=== PATIENT | male | born 1965 | race Two or more races ===

== ENCOUNTER 2023-08-17 17:31 | Inpatient (IN) | payer MEDICAID, OTHER ==
[~2023-08-17] VITALS: Ht 185.4 cm; Wt 83.2 kg
[2023-08-17] MEDS: SODIUM CHLORIDE 0.9% 1,000 ML IV ONE ×2 (18:21→23:44)
[2023-08-17 19:19] LABS: Basophils # (auto) 0.1 10 ^3/uL (0-0.2); Basophils % (auto) 0.6 % (0.0-2.0); Eosinophils # (auto) 0.1 10 ^3/uL (0-0.8); Eosinophils % (auto) 1.2 % (0.0-7.0); Hematocrit 37.6 % (41.0-53.0); Hemoglobin 12.6 g/dL (13.5-17.5); Lymphocytes % (auto) 8.9 % (10.0-50.0); Mean Corpuscular Hemoglobin 27.9 pg (28.0-32.0); Mean Corpuscular Hgb Conc. 33.4 g/dL (32.0-36.0); Mean Corpuscular Volume 83.6 fL (80.0-100.0); Monocytes % (auto) 8.3 % (0.0-12.0); Neutrophils # (auto) 9.4 10 ^3/uL (1.6-8.6); Nucleated Red Blood Cells % 0.1 %; Red Cell Distribution Width 15.4 % (11.8-14.3); White Blood Cell 11.6 10^3/uL (4.4-10.8)
[2023-08-17 19:33] LABS: Alanine Aminotransferase 45 U/L (7-40); Alkaline Phosphatase 58 U/L (46-116); Anion Gap 7 (5-15); Aspartate Aminotransferase 25 U/L (13-40); BUN/Creatinine Ratio 23.7 (10.0-20.0); Blood Urea Nitrogen 18 mg/dL (9-23); Calcium 8.7 mg/dL (8.7-10.4); Carbon Dioxide 23 mmol/L (20-30); Chloride 100 mmol/L (98-107); Glucose 95 mg/dL (74-106); Potassium 3.6 mmol/L (3.5-5.1); Sodium 130 mmol/L (136-145)
[2023-08-17 19:34] LABS: Albumin 3.8 g/dL (3.2-4.8); Total Protein 6.9 g/dL (5.7-8.2)
[2023-08-17] MEDS: ACETAMINOPHEN 325 MG TAB PO ONE (23:36)
[2023-08-17] MEDS: cefTRIAXone 1GM/50ML D5W 50 ML IV ONE (23:38)
[2023-08-18] MEDS ORDERED: NITROGLYCERIN 0.4 MG SL TAB SL PRN (00:15)
[2023-08-18] MEDS ORDERED: ONDANSETRON HCL 4 MG/2 ML VIAL IV PRN (00:15)
[2023-08-18] MEDS ORDERED: MORPHINE SULFATE INJ 2 MG/ml SYRG IV PRN (00:15)
[2023-08-18] MEDS ORDERED: TEMAZEPAM 15 MG CAP PO PRN (00:15)
[2023-08-18] MEDS: SODIUM CHLORIDE 0.9% 1,000 ML IV ONE (01:04)
[2023-08-18 02:50] LABS: Urine Bacteria None Seen /hpf (None Seen)
[2023-08-18 03:08] LABS: Urine Blood 1+ /uL (Negative); Urine Clarity Clear (Clear); Urine Color Light-Yellow (Yellow); Urine Protein, UAD Negative (Negative); Urine Specific Gravity 1.016 (1.001-1.035); Urine Urobilinogen Normal (Negative); Urine WBC 1 /hpf (0 - 3); Urine pH 5.5 (5.0-9.0)
[2023-08-18 06:39] VITALS: PULSE 114
[2023-08-18 07:20] VITALS: PULSE 116; RESP 17; O2SAT 96
[2023-08-18] MEDS: ACETAMINOPHEN 325 MG TAB PO PRN (07:57)
[2023-08-18 08:20] LABS: COVID19 ANTIGEN SOFIA FIA NEGATIVE (NEGATIVE)
[2023-08-18 10:21] LABS: Basophils # (auto) 0 10 ^3/uL (0-0.2); Basophils % (auto) 0.4 % (0.0-2.0); Eosinophils # (auto) 0 10 ^3/uL (0-0.8); Eosinophils % (auto) 0.1 % (0.0-7.0); Hematocrit 38.7 % (41.0-53.0); Hemoglobin 13.1 g/dL (13.5-17.5); Lymphocytes # (auto) 1.2 10 ^3/uL (0.4-5.4); Lymphocytes % (auto) 11.4 % (10.0-50.0); Mean Corpuscular Hemoglobin 27.8 pg (28.0-32.0); Mean Corpuscular Hgb Conc. 33.8 g/dL (32.0-36.0); Mean Corpuscular Volume 82.4 fL (80.0-100.0); Monocytes # (auto) 0.6 10 ^3/uL (0-1.3); Monocytes % (auto) 5.8 % (0.0-12.0); Neutrophils # (auto) 8.8 10 ^3/uL (1.6-8.6); Neutrophils % (auto) 82.3 % (37.0-80.0); Red Cell Distribution Width 14.9 % (11.8-14.3); White Blood Cell 10.6 10^3/uL (4.4-10.8)
[2023-08-18 10:36] LABS: INR 1.19 (0.9-1.15); Prothrombin Time 12.5 sec (9.3-11.8)
[2023-08-18 10:40] LABS: Alanine Aminotransferase 38 U/L (7-40); Albumin 3.7 g/dL (3.2-4.8); Alkaline Phosphatase 55 U/L (46-116); Anion Gap 6 (5-15); Aspartate Aminotransferase 20 U/L (13-40); BUN/Creatinine Ratio 24.2 (10.0-20.0); Blood Urea Nitrogen 16 mg/dL (9-23); Calcium 8.6 mg/dL (8.5-10.1); Carbon Dioxide 25 mmol/L (20-30); Chloride 100 mmol/L (98-107); Creatine Kinase IFCC 112 U/L (46-171); Glucose 100 mg/dL (74-106); LDL Cholesterol 59 mg/dL (< 100); Magnesium 1.6 mg/dL (1.6-2.6); Potassium 3.2 mmol/L (3.5-5.1); Sodium 131 mmol/L (136-145); Triglycerides 72 mg/dL (< 150)
[2023-08-18 10:41] LABS: Bilirubin, Total 1.1 mg/dL (0.2-1.0); Cholesterol 108 mg/dL (< 200); HDL Cholesterol 34 mg/dL (40-59); Total Protein 6.7 g/dL (5.7-8.2)
[2023-08-18 10:49] LABS: CRP High Sensitivity 7.85 mg/dL (<1.0)
[2023-08-18] MEDS: POTASSIUM CHL 20 Meq TABLET PO ONE (12:12)
[2023-08-18] MEDS: MAGNESIUM SULFATE 1GM/100ML 100 ML IV SCH (12:13)
[2023-08-18] MEDS: SODIUM CHLORIDE 0.9% 1,000 ML IV SCH (12:13)
[2023-08-18 12:57] LABS: Amphetamine Screen, Urine Pos (NEGATIVE); Barbiturate Scree,Urine Neg (NEGATIVE); Benzodiazephine Screen, Urine Neg (NEGATIVE); Cocaine Screen, Urine Neg (NEGATIVE)
[2023-08-18 12:58] LABS: Cannabinoid Screen, Urine Neg (NEGATIVE); Opiate Scree,Urine Neg (NEGATIVE); Phencyclidine Screen, Urine Neg (NEGATIVE)
[2023-08-18 13:16] LABS: Rapid Influenza A Negative (Negative); Rapid Influenza B Negative (Negative)
[2023-08-18] MEDS: cefTRIAXone 1GM/50ML D5W 50 ML IV ONE (16:48)
[2023-08-18 22:46] VITALS: BP 146/99; PULSE 100; RESP 17; TEMP 97.7; O2SAT 98
[2023-08-18 22:54] VITALS: PULSE 100; RESP 18; O2SAT 98
[2023-08-19] VITALS (8 sets, daily range): BP systolic 118–130; BP diastolic 75–88; PULSE 62–120; RESP 16–20; TEMP 97.8–100.3; O2SAT 94–100
[2023-08-19 06:27] LABS: Basophils # (auto) 0 10 ^3/uL (0-0.2); Basophils % (auto) 0.5 % (0.0-2.0); Eosinophils # (auto) 0 10 ^3/uL (0-0.8); Hematocrit 38.6 % (41.0-53.0); Lymphocytes % (auto) 13.6 % (10.0-50.0); Mean Corpuscular Hemoglobin 27.8 pg (28.0-32.0); Mean Corpuscular Hgb Conc. 33.6 g/dL (32.0-36.0); Mean Corpuscular Volume 82.9 fL (80.0-100.0); Monocytes # (auto) 0.9 10 ^3/uL (0-1.3); Monocytes % (auto) 12.5 % (0.0-12.0); Neutrophils # (auto) 5.5 10 ^3/uL (1.6-8.6); Neutrophils % (auto) 73.4 % (37.0-80.0); Red Blood Cells 4.66 10^6/uL (4.5-5.90); Red Cell Distribution Width 14.8 % (11.8-14.3); White Blood Cell 7.4 10^3/uL (4.4-10.8)
[2023-08-19 06:47] LABS: Alanine Aminotransferase 36 U/L (7-40); Albumin 3.4 g/dL (3.2-4.8); Alkaline Phosphatase 49 U/L (46-116); Anion Gap 6 (5-15); Aspartate Aminotransferase 21 U/L (13-40); BUN/Creatinine Ratio 22.6 (10.0-20.0); Blood Urea Nitrogen 14 mg/dL (9-23); Calcium 8.3 mg/dL (8.5-10.1); Carbon Dioxide 22 mmol/L (20-30); Chloride 99 mmol/L (98-107); Glucose 110 mg/dL (74-106); Magnesium 1.8 mg/dL (1.6-2.6); Potassium 3.1 mmol/L (3.5-5.1); Sodium 127 mmol/L (136-145)
[2023-08-19 06:48] LABS: Bilirubin, Total 0.9 mg/dL (0.2-1.0); Total Protein 6.3 g/dL (5.7-8.2)
[2023-08-19 07:06] LABS: RPR Non Reactive (Non Reactive)
[2023-08-19 08:02] LABS: Erythrocyte Sedimentation Rate 8 mm/hr (0-20)
[2023-08-19] MEDS: cefTRIAXone 1GM/50ML D5W 50 ML IV SCH (09:16)
[2023-08-19] MEDS: MAGNESIUM SULFATE 1GM/100ML 100 ML IV ONE ×2 (12:05→15:00)
[2023-08-19 14:35] LABS: Chloride 100 mmol/L (98-107); Potassium 3.1 mmol/L (3.5-5.1)
[2023-08-19 14:36] LABS: Anion Gap 5 (5-15); Calcium 8.4 mg/dL (8.5-10.1); Carbon Dioxide 27 mmol/L (20-30)
[2023-08-19 14:41] LABS: BUN/Creatinine Ratio 19.7 (10.0-20.0); Blood Urea Nitrogen 13 mg/dL (9-23); Glucose 114 mg/dL (74-106)
[2023-08-19 14:54] LABS: Sodium 132 mmol/L (136-145)
[2023-08-19] MEDS ORDERED: POTASSIUM CHLORIDE 60 MEQ, LIDOCAINE 1% (LOCAL ANESTH.) 6 ML in SODIUM CHL 0.9% 500 ML IV ONE (15:00)
[2023-08-19] MEDS: POTASSIUM CHLORIDE 60 MEQ, LIDOCAINE 1% (LOCAL ANESTH.) 6 ML in SODIUM CHL 0.9% 500 ML IV ONE (15:00)
[2023-08-19 17:46] LABS: Folate (Folic Acid) 14.41 ng/mL (>5.38)
[2023-08-19] MEDS: POTASSIUM EFFERVESENT TAB 25 MEQ PO ONE (18:25)
[2023-08-19] MEDS: ERGOCALCIFEROL 50,000 UNIT(1.25MG) CAP PO SCH (20:01)
[2023-08-20] VITALS (7 sets, daily range): BP systolic 119–148; BP diastolic 76–87; PULSE 79–98; RESP 16–18; TEMP 98.1–98.9; O2SAT 96–99
[2023-08-20 05:30] LABS: Creatinine, Urine 30.9 mg/dL (30.0-125.0)
[2023-08-20 07:47] LABS: Basophils # (auto) 0.1 10 ^3/uL (0-0.2); Basophils % (auto) 0.8 % (0.0-2.0); Eosinophils # (auto) 0.2 10 ^3/uL (0-0.8); Hemoglobin 13.1 g/dL (13.5-17.5); Lymphocytes # (auto) 1.3 10 ^3/uL (0.4-5.4); Lymphocytes % (auto) 19.3 % (10.0-50.0); Mean Corpuscular Hemoglobin 27.5 pg (28.0-32.0); Mean Corpuscular Hgb Conc. 32.9 g/dL (32.0-36.0); Mean Corpuscular Volume 83.8 fL (80.0-100.0); Monocytes # (auto) 1.1 10 ^3/uL (0-1.3); Monocytes % (auto) 16.2 % (0.0-12.0); Neutrophils # (auto) 4.2 10 ^3/uL (1.6-8.6); Neutrophils % (auto) 60.7 % (37.0-80.0); Nucleated Red Blood Cells % 0.1 %; Red Blood Cells 4.77 10^6/uL (4.5-5.90); Red Cell Distribution Width 15.2 % (11.8-14.3)
[2023-08-20 07:54] LABS: Alanine Aminotransferase 33 U/L (7-40); Albumin 3.2 g/dL (3.2-4.8); Alkaline Phosphatase 46 U/L (46-116); Anion Gap 4 (5-15); Aspartate Aminotransferase 23 U/L (13-40); BUN/Creatinine Ratio 18.2 (10.0-20.0); Blood Urea Nitrogen 10 mg/dL (9-23); Calcium 8.5 mg/dL (8.5-10.1); Carbon Dioxide 26 mmol/L (20-30); Chloride 105 mmol/L (98-107); Creatine Kinase IFCC 55 U/L (46-171); Glucose 99 mg/dL (74-106); Magnesium 2.2 mg/dL (1.6-2.6); Potassium 3.6 mmol/L (3.5-5.1); Sodium 135 mmol/L (136-145)
[2023-08-20 07:55] LABS: Bilirubin, Total 0.4 mg/dL (0.2-1.0); Total Protein 6.1 g/dL (5.7-8.2)
[2023-08-20 08:04] LABS: CRP High Sensitivity 6.26 mg/dL (<1.0)
[2023-08-20 08:41] LABS: Hepatitis B Surface Antibody Negative (Negative)
[2023-08-20 09:02] LABS: Hepatitis B Surface Antigen Positive (Negative)
[2023-08-20] MEDS ORDERED: VANCOMYCIN PER PHARMACY 0 MG IV SCH (16:00)
[2023-08-20] MEDS: VANCOMYCIN 1GM/200ML 200 ML IV ONE (17:24)
[2023-08-20] MEDS: MUPIROCIN 2% OINT 15gm or 22gm FOR MRSA NARES EACHNOSTRI SCH (21:49)
[2023-08-21 01:00] VITALS: BP 110/80; PULSE 90; RESP 18; TEMP 97.2; O2SAT 98
[2023-08-21] MEDS: VANCOMYCIN 1GM/200ML 200 ML IV SCH (02:08)
[2023-08-21 05:00] VITALS: BP 126/85; PULSE 83; RESP 16; TEMP 97.8; O2SAT 98
[2023-08-21 05:09] LABS: Chloride 107 mmol/L (98-107); Potassium 3.6 mmol/L (3.5-5.1); Sodium 136 mmol/L (136-145)
[2023-08-21 05:10] LABS: Anion Gap 2 (5-15); Calcium 8.5 mg/dL (8.5-10.1); Carbon Dioxide 27 mmol/L (20-30)
[2023-08-21 05:12] LABS: Basophils # (auto) 0.1 10 ^3/uL (0-0.2); Basophils % (auto) 0.9 % (0.0-2.0); Eosinophils # (auto) 0.4 10 ^3/uL (0-0.8); Eosinophils % (auto) 6.9 % (0.0-7.0); Hematocrit 38.9 % (41.0-53.0); Hemoglobin 13.1 g/dL (13.5-17.5); Lymphocytes # (auto) 1.6 10 ^3/uL (0.4-5.4); Lymphocytes % (auto) 28.7 % (10.0-50.0); Mean Corpuscular Hgb Conc. 33.8 g/dL (32.0-36.0); Monocytes # (auto) 0.9 10 ^3/uL (0-1.3); Monocytes % (auto) 16.3 % (0.0-12.0); Neutrophils # (auto) 2.7 10 ^3/uL (1.6-8.6); Neutrophils % (auto) 47.2 % (37.0-80.0); Nucleated Red Blood Cells % 0.1 %; Red Blood Cells 4.69 10^6/uL (4.5-5.90); Red Cell Distribution Width 15.6 % (11.8-14.3); White Blood Cell 5.6 10^3/uL (4.4-10.8)
[2023-08-21 05:15] LABS: BUN/Creatinine Ratio 19.4 (10.0-20.0); Blood Urea Nitrogen 12 mg/dL (9-23); Glucose 94 mg/dL (74-106)
[2023-08-21 05:16] LABS: Magnesium 1.9 mg/dL (1.6-2.6)
[2023-08-21 08:50] VITALS: BP 127/72; PULSE 85; RESP 17; TEMP 98; O2SAT 95
[2023-08-21] MEDS: CIPROFLOXACIN HYDROCHLORIDE 250 MG TAB PO SCH (09:01)
[2023-08-21] MEDS ORDERED: CIPR250T26 PO (11:55)
[2023-08-21] MEDS ORDERED: MUPI2OIN2 EACHNOSTRI (11:55)
[2023-08-21] MEDS ORDERED: ERGO1CAP23 PO (11:55)
[2023-08-21] MEDS ORDERED: SACC250C PO (15:16)
[2023-08-21] MEDS ORDERED: VANC125C3 PO (15:16)
[2023-08-21] MEDS ORDERED: VANCOMYCIN HCL 125 MG CAP PO SCH (18:00)
[2023-08-22] MEDS ORDERED: FLORASTOR (S. BOULARDII) 250 MG CAP PO SCH (10:00)
== END 2023-08-21 14:00 | disposition home or self-care (01) | DRG 720 ==
LOC: ER 17:31 → TELE 08-18 00:21 → TELE-WESTW 08-18 22:42 → WEST WING 08-19 17:17
PROVIDERS: ADMIT Internal Medicine Pulmonary Disease; ATTEND Internal Medicine Pulmonary Disease
DX: A41.9 Sepsis, unspecified organism (principal); G92.8 Other toxic encephalopathy; D69.6 Thrombocytopenia, unspecified; T67.01XA Heatstroke and sunstroke, initial encounter; E72.20 Disorder of urea cycle metabolism, unspecified; E87.1 Hypo-osmolality and hyponatremia; E86.0 Dehydration; R74.01 Elevation of levels of liver transaminase levels; E87.6 Hypokalemia; E80.6 Other disorders of bilirubin metabolism; R31.9 Hematuria, unspecified; F15.90 Other stimulant use, unspecified, uncomplicated; J33.1 Polypoid sinus degeneration; B34.9 Viral infection, unspecified; B19.10 Unspecified viral hepatitis B without hepatic coma; N39.0 Urinary tract infection, site not specified; X58.XXXA Exposure to other specified factors, initial encounter; E86.1 Hypovolemia; B96.89 Other specified bacterial agents as the cause of diseases classified elsewhere; Y93.89 Activity, other specified; Y92.89 Other specified places as the place of occurrence of the external cause; Y99.8 Other external cause status
CPT/HCPCS: 36415; 70450; 70551; 71045; 76705; 80048; 80053; 80061; 80307; 81001; 82140; 82270; 82306; 82533; 82550; 82570; 82607; 82746; 83605; 83735; 83874; 83930; 83986; 84300; 84443; 85025; 85048; 85379; 85610; 85652; 85730; 86141; 86592; 86703; 86706; 86803; 87040; 87045; 87081; 87086; 87088; 87186; 87340; 87389; 87426; 87427; 87493; 87804; 93005; 93306; 93886; 96361; 96365; 96366; 96367; G0378; J2001